=== PATIENT | male | born 1955 | race Caucasian/White ===

== ENCOUNTER → 2016-11-12 | Outpatient (CLI) | payer BC ==
[~2016-11-12] VITALS: Ht 170.2 cm; Wt 100.4 kg
[~2016-11-12] MED LIST: ASPEC325 PO; FIBER; LSN25 PO; MULT-506 PO; OMEG10007 PO; PRVC40 PO; VIAGRA PO
[2016-11-12 13:45] VITALS: BP 164/76; PULSE 76; Ht 170.2 cm; Wt 100.4 kg
== END | disposition home or self-care (01) ==
LOC: C.NEUR 13:07
PROVIDERS: ATTEND Internal Medicine Pulmonary Disease
DX: G47.30 Sleep apnea, unspecified (principal); I10 Essential (primary) hypertension; I63.9 Cerebral infarction, unspecified

== ENCOUNTER → 2017-05-13 | Outpatient (CLI) | payer BC ==
[~2017-05-13] VITALS: Ht 167.6 cm; Wt 219.1 kg
[2017-05-13 13:30] VITALS: BP 151/84; PULSE 67; Ht 167.6 cm; Wt 219.1 kg
== END | disposition home or self-care (01) ==
LOC: C.NEUR 11:46
PROVIDERS: ATTEND Physician Assistant Medical
DX: G47.30 Sleep apnea, unspecified (principal); I63.9 Cerebral infarction, unspecified; I65.29 Occlusion and stenosis of unspecified carotid artery

== ENCOUNTER → 2017-09-23 | Outpatient (CLI) | payer BC ==
[2017-09-23 11:10] LABS: MEAN CELL VOLUME 89.6 fL (80-100); MEAN CORPUSCULAR HEMOGLOBIN 30.1 pg (25-34); MEAN CORPUSCULAR HGB CONC 33.6 g/dl (32-36); MEAN PLATELET VOLUME 9.9 fL (7.4-10.4); PLATELET COUNT 221 K/uL (130-400); RED BLOOD COUNT 4.91 M/uL (4.7-6.1); WHITE BLOOD COUNT 4.48 K/uL (4.8-10.8)
[2017-09-23 11:42] LABS: ALT/SGPT 32 U/L (12-78); AST/SGOT 18 U/L (15-37); BLOOD UREA NITROGEN 22 mg/dl (7-18); BUN/CREATININE RATIO 22.4 (10-20); CALCIUM 8.5 mg/dl (8.5-10.1); CARBON DIOXIDE 28 mmol/L (21-32); CHLORIDE 106 mmol/L (98-107); CREATININE 0.98 mg/dl (0.60-1.40); GLUCOSE 83 mg/dl (70-99); POTASSIUM 4.4 mmol/L (3.5-5.1); SODIUM 140 mmol/L (136-145)
[2017-09-23 11:47] LABS: CHOLESTEROL 132 mg/dl (0-200); CHOLESTEROL/HDL RATIO 2.1; HDL CHOLESTEROL 62 mg/dl; LDL CHOLESTEROL CALCULATED 48 mg/dl; PROSTATE SPECIFIC ANTIGEN 0.644 ng/ml (0.000-4.000); TRIGLYCERIDES 110 mg/dl (0-150); VERY LOW DENSITY LIPOPROT CALC 22 mg/dl
== END | disposition home or self-care (01) ==
LOC: C.LABBC 07:56
PROVIDERS: ATTEND Internal Medicine
DX: Z12.5 Encounter for screening for malignant neoplasm of prostate (principal); E78.5 Hyperlipidemia, unspecified; I10 Essential (primary) hypertension; I63.9 Cerebral infarction, unspecified

== ENCOUNTER → 2017-11-11 | Outpatient (CLI) | payer OTHER ==
[~2017-11-11] VITALS: Ht 170.2 cm; Wt 100.9 kg
[2017-11-11 13:36] VITALS: BP 144/79; PULSE 69; Ht 170.2 cm; Wt 100.9 kg
== END | disposition home or self-care (01) ==
LOC: C.NEUR 12:50
PROVIDERS: ATTEND Internal Medicine Pulmonary Disease
DX: G47.30 Sleep apnea, unspecified (principal); I63.9 Cerebral infarction, unspecified; I10 Essential (primary) hypertension

== ENCOUNTER → 2018-06-19 | Outpatient (CLI) | payer OTHER ==
[~2018-06-19] VITALS: Ht 170.2 cm; Wt 100.2 kg
[2018-06-19 15:33] VITALS: BP 147/82; PULSE 67; Ht 170.2 cm; Wt 100.2 kg
== END | disposition home or self-care (01) ==
LOC: C.NEUR 15:05
PROVIDERS: ATTEND Internal Medicine Pulmonary Disease
DX: G47.30 Sleep apnea, unspecified (principal); I10 Essential (primary) hypertension; Z86.73 Personal history of transient ischemic attack (TIA), and cerebral infarction without residual deficits

== ENCOUNTER → 2018-06-24 | Outpatient (CLI) | payer OTHER ==
--- NOTE | 2018-06-24 08:44 | DIAGNOSTIC IMAGING REPORT ---
R SHOULDER MIN 2 VIEWS CLINICAL HISTORY: Right shoulder pain. COMPARISON: None. FINDINGS: Alignment of the right shoulder is anatomic. No fracture or suspicious lesion is noted. There is moderate osteoarthritis of the right acromioclavicular joint and mild osteoarthritis of the right glenohumeral joint. A 9 mm calcific density projects just lateral to the superior glenoid on AP projection. This is not visualized on the remainder of the images. There is relative lucency of the inferior glenoid. IMPRESSION: 1. No acute fracture. 2. Moderate osteoarthritis of the right acromioclavicular joint and mild osteoarthritis of the right glenohumeral joint. 3. 9 mm calcific density which projects just lateral to the superior glenoid on AP projection. This may reflect a joint body, osteophyte, bone fragment arising from the inferior glenoid or atypical appearance of calcific tendinitis. Electronically signed by: Nicola Flores M.D. 06/24/2018 8:43 AM Dictated Date/Time: 06/24/2018 8:39 AM
== END | disposition home or self-care (01) ==
LOC: C.RDSM 08:07
PROVIDERS: ATTEND Family Medicine
DX: M19.011 Primary osteoarthritis, right shoulder (principal); Z88.0 Allergy status to penicillin